=== PATIENT | male | born 1930 ===

== ENCOUNTER 2017-11-28 22:16 | Inpatient (IN) | payer MEDICARE ==
[2017-11-28 22:16] VITALS: BMI 27.9
[2017-11-28 23:00] LABS: BASO # 0.1 K/uL (0.0-0.2); EOS # 0.4 K/uL (0.0-0.7); EOS % 4.4 % (0.0-4.0); HEMOGLOBIN 10.9 g/dL (12.0-18.0); LYMPH # 2.4 K/uL (1.0-4.3); LYMPH % 25.6 % (20.0-40.0); MEAN CELL VOLUME 88.2 fL (80.0-94.0); MEAN CORPUSCULAR HEMOGLOBIN 29.5 pg (27.0-31.0); MEAN CORPUSCULAR HGB CONC 33.5 g/dL (33.0-37.0); MEAN PLATELET VOLUME 7.1 fL (7.2-11.7); MONO # 0.9 K/uL (0.0-0.8); MONO % 9.3 % (0.0-10.0); NEUT # 5.7 K/uL (1.8-7.0); NEUT % 59.7 % (50.0-75.0); NRBC % 0.1 % (0.0-2.0); RBC 3.69 Mil/uL (4.40-5.90); RED CELL DISTRIBUTION WIDTH 15.7 % (11.5-14.5); WHITE BLOOD COUNT 9.5 K/uL (4.8-10.8)
[2017-11-28 23:12] LABS: ALB/GLOB RATIO 1.2 (1.0-2.1); ALBUMIN 3.5 g/dL (3.5-5.0); ALT/SGPT 32 U/L (21-72); AST/SGOT 19 U/L (17-59); BLOOD UREA NITROGEN 17 mg/dL (9-20); CALCIUM 8.6 mg/dl (8.6-10.4); GFR NON-AFRICAN AMERICAN > 60
[2017-11-29] MEDS ORDERED: Moxifloxacin IV 400mg/250ml NS 400 MG/250 ML BAG IVPB ONE ×3 (00:11→00:29)
[2017-11-29] MEDS: Albuterol-Ipratrop 3 mg / 0.5 (3 ml) UD INH SCH ×4 (01:50→20:22)
[2017-11-29] MEDS ORDERED: Pneumococcal 23-Valent Vaccine IM ONE (02:39)
--- NOTE | 2017-11-29 03:11 | C.PDOC ---
History Of Present Illness 87 year old male presents to the ER with a complaint of a nonproductive cough for the past 8-10 days. Patient visited his PMD a few times with no relief. Denies SOB, chest pain, or recent travel. Chief Complaint (Nursing): Cough, Cold, Congestion History Per: Patient History/Exam Limitations: no limitations Onset/Duration Of Symptoms: Days Current Symptoms Are (Timing): Still Present Location Of Pain: None Sick Contacts (Context): None Associated Symptoms: Cough. denies: Fever, Sputum, Other (SOB, Chest pain) Ear Symptoms: Bilateral: None Recent travel outside of the [place]: No Past Medical History Reviewed: Historical Data, Nursing Documentation, Vital Signs Vital Signs: Last Vital Signs Temp 98.2 F 11/29/17 01:45 Pulse 67 11/29/17 01:45 Resp 20 11/29/17 01:45 BP 137/64 11/29/17 01:45 Pulse Ox 98 11/29/17 02:56 - Medical History PMH: Hypercholesterolemia Surgical History: Cholecystectomy - [facility] Procedures PARENTERAL INFUSION OF CONCENTRATED NUT. SUBSTANCE (07/11/12) Family History: States: Unknown Family Hx - Social History Hx Alcohol Use: No Hx Substance Use: No - Immunization History Hx Tetanus Toxoid Vaccination: No Hx Influenza Vaccination: Yes Hx Pneumococcal Vaccination: No Review Of Systems Constitutional: Negative for: Fever, Chills ENT: Negative for: Throat Pain Cardiovascular: Negative for: Chest Pain Respiratory: Positive for: Cough. Negative for: Shortness of Breath Gastrointestinal: Negative for: Nausea, Vomiting Genitourinary: Negative for: Dysuria, Hematuria Skin: Negative for: Rash Neurological: Negative for: Weakness, Numbness Physical Exam - Physical Exam Appears: Non-toxic Skin: Normal Color, Warm, Dry Head: Atraumatic, Normacephalic Eye(s): bilateral: Normal Inspection Ear(s): Bilateral: Normal Nose: Normal Oral Mucosa: Moist Throat: Normal, No Erythema, No Exudate Neck: Normal, Supple Chest: Symmetrical, No Tenderness Cardiovascular: Rhythm Regular Respiratory: Normal Breath Sounds, No Rales, No Rhonchi, No Wheezing Gastrointestinal/Abdominal: Soft, No Tenderness Back: No CVA Tenderness Neurological/Psych: Oriented x3, Normal Speech ED Course And Treatment - Laboratory Results Result Diagrams: 11/28/17 22:56 11/28/17 22:56 O2 Sat by Pulse Oximetry: 98 (Room air) Pulse Ox Interpretation: Normal Progress Note: Dr. Cosme Nieves notified, patient to be admitted for community acquired pneumonia. Disposition - Disposition Disposition: HOSPITALIZED Disposition Time: 23:30 Condition: STABLE - Clinical Impression Clinical Impression: Pneumonia - Scribe Statement The provider has reviewed the documentation as recorded by the Scribe Jean Pierre Funez All medical record entries made by the Willyibe were at my direction and personally dictated by me. I have reviewed the chart and agree that the record accurately reflects my personal performance of the history, physical exam, medical decision making, and the department course for this patient. I have also personally directed, reviewed, and agree with the discharge instructions and disposition.
[2017-11-29] MEDS: (Novolog) Insulin Aspart, Recombinant 100 u/ml 10 ml vial SC SCH ×4 (07:33→21:40)
--- NOTE | 2017-11-29 09:31 | RAD ---
Date of service: 11/28/2017 PROCEDURE: CHEST RADIOGRAPH, 1 VIEW HISTORY: SOB COMPARISON: None available. FINDINGS: LUNGS: Clear. PLEURA: No pneumothorax or pleural fluid seen. CARDIOVASCULAR: Normal. OSSEOUS STRUCTURES: No significant abnormalities. VISUALIZED UPPER ABDOMEN: Normal. OTHER FINDINGS: None. IMPRESSION: No active disease.
[2017-11-29] MEDS: Enoxaparin 40 mg Syringe SC SCH (10:00)
[2017-11-29] MEDS ORDERED: Pantoprazole 40 mg EC Tab PO SCH (10:00)
[2017-11-29] MEDS ORDERED: guaiFENesin DM 200 mg-20 mg/10 ml UD PO SCH (10:00)
[2017-11-29] MEDS: Moxifloxacin IV 400mg/250ml NS 400 MG/250 ML BAG IVPB SCH (17:41)
--- NOTE | 2017-11-29 21:02 | CP.PCM.HP ---
Past Patient History - Past Social History Smoking Status: Never Smoked - CARDIAC Hx Hypercholesterolemia: Yes - ENDOCRINE/METABOLIC Hx Diabetes Mellitus Type 2: Yes - MUSCULOSKELETAL/RHEUMATOLOGICAL Hx Arthritis: Yes (BACK) - PSYCHIATRIC Hx Substance Use: No - SURGICAL HISTORY Hx Cholecystectomy: Yes - ANESTHESIA Hx Anesthesia: Yes Hx Anesthesia Reactions: No Meds Allergies/Adverse Reactions: Allergies Allergy/AdvReac Type Severity Reaction Status Date / Time Penicillins Allergy Verified 11/28/17 22:30 Physical Exam - Constitutional Appears: Well - Head Exam Head Exam: ATRAUMATIC, NORMAL INSPECTION, NORMOCEPHALIC - Eye Exam Eye Exam: EOMI, Normal appearance, PERRL Pupil Exam: NORMAL ACCOMODATION, PERRL - ENT Exam ENT Exam: Mucous Membranes Moist, Normal Exam - Neck Exam Neck exam: Positive for: Normal Inspection - Respiratory Exam Respiratory Exam: Decreased Breath Sounds - Cardiovascular Exam Cardiovascular Exam: REGULAR RHYTHM, +S1, +S2 - GI/Abdominal Exam GI & Abdominal Exam: Diminished Bowel Sounds, Soft - Rectal Exam Rectal Exam: Deferred Results - Vital Signs Recent Vital Signs: Last Vital Signs Temp 98.2 F 11/29/17 15:30 Pulse 67 11/29/17 15:30 Resp 20 11/29/17 15:30 BP 123/65 11/29/17 15:30 Pulse Ox 95 11/29/17 15:30 - Labs Result Diagrams: 11/28/17 22:56 11/28/17 22:56 Labs: Laboratory Results - last 24 hr 11/28/17 11/28/17 11/28/17 22:56 22:56 22:59 WBC 9.5 RBC 3.69 L Hgb 10.9 L Hct 32.6 L MCV 88.2 D MCH 29.5 MCHC 33.5 RDW 15.7 H Plt Count 276 MPV 7.1 L Neut % (Auto) 59.7 Lymph % (Auto) 25.6 [place] % (Auto) 9.3 Eos % (Auto) 4.4 H Baso % (Auto) 1.0 Neut # (Auto) 5.7 Lymph # (Auto) 2.4 [place] # (Auto) 0.9 H Eos # (Auto) 0.4 Baso # (Auto) 0.1 Sodium 135 Potassium 4.2 Chloride 101 Carbon Dioxide 25 Anion Gap 14 BUN 17 Creatinine 0.7 L Est GFR ( Amer) > 60 Est GFR (Non-Af Amer) > 60 POC Glucose (mg/dL) Random Glucose 228 H Calcium 8.6 Total Bilirubin 0.4 AST 19 ALT 32 Alkaline Phosphatase 66 Total Protein 6.3 Albumin 3.5 Globulin 2.8 Albumin/Globulin Ratio 1.2 Influenza Typ A,B (EIA) Negative for flu a/b 11/29/17 11/29/17 11/29/17 07:15 11:08 16:35 WBC RBC Hgb Hct MCV MCH MCHC RDW Plt Count MPV Neut % (Auto) Lymph % (Auto) [place] % (Auto) Eos % (Auto) Baso % (Auto) Neut # (Auto) Lymph # (Auto) [place] # (Auto) Eos # (Auto) Baso # (Auto) Sodium Potassium Chloride Carbon Dioxide Anion Gap BUN Creatinine Est GFR ( Amer) Est GFR (Non-Af Amer) POC Glucose (mg/dL) 96 203 H 161 H Random Glucose Calcium Total Bilirubin AST ALT Alkaline Phosphatase Total Protein Albumin Globulin Albumin/Globulin Ratio Influenza Typ A,B (EIA)
[2017-11-29] MEDS: Promethazine/Cod 6.25mg-10mg/5ml Syr UD PO PRN (21:34)
[2017-11-30] MEDS: Albuterol-Ipratrop 3 mg / 0.5 (3 ml) UD INH SCH ×6 (02:07→21:05)
[2017-11-30] MEDS: Promethazine/Cod 6.25mg-10mg/5ml Syr UD PO PRN (04:35)
[2017-11-30] MEDS: (Novolog) Insulin Aspart, Recombinant 100 u/ml 10 ml vial SC SCH ×4 (08:18→21:57)
--- NOTE | 2017-11-30 10:36 | CP.PCM.CON ---
History of Present Illness - History of Present Illness History of Present Illness: Asked to see this 87yo male admitted for pneumonia with SOB, cough for several days duration. Patient reports lower abdominal pain Left>right but jomar N/V/C/D. No bleeding or melena. Reports he is unaware if he has had a colono scopy or ever seen a GI physician from Dr Nieves. Has h/o umbilical hernia repair but unclear of when and says the bulging recurred soon after the operation. Asked to see about his pain. Review of Systems - Respiratory Respiratory: Cough, Dyspnea on Exertion, Chest Congestion - Gastrointestinal Gastrointestinal: As Per HPI - Genitourinary Genitourinary: absent: Dysuria, Hematuria, Nocturia - Musculoskeletal Musculoskeletal: Arthralgias Past Patient History - Past Social History Smoking Status: Never Smoked Alcohol: None Drugs: Denies - CARDIAC Hx Hypercholesterolemia: Yes - ENDOCRINE/METABOLIC Hx Diabetes Mellitus Type 2: Yes - HEMATOLOGICAL/ONCOLOGICAL Hx Cirrhosis: No Hx Hepatitis A: No Hx Hepatitis B: No Hx Hepatitis C: No Hx Human Immunodeficiency Virus (HIV): No - MUSCULOSKELETAL/RHEUMATOLOGICAL Hx Arthritis: Yes (BACK) - GASTROINTESTINAL Hx Gastrointestinal Disorders: No Hx Bowel Surgery: No Hx Clostridium Difficile: No Hx Colitis: No Hx Colostomy: No Hx Constipation: No Hx Crohn's Disease: No Hx Diarrhea: No Hx Diverticulitis: No Hx Esophageal Varices: No Hx Fatty Liver Disease: No Hx Gall Bladder Disease: No Hx Gastritis: No Hx Gastroesophageal Reflux: No Hx Hemorrhoids: No Hx Ileostomy: No Hx Irritable Bowel: No Hx Liver Failure: No Hx Nausea: No Hx Pancreatitis: No HX Swallowing Problems: No Hx Ulcer: No Hx Vomiting: No Other/Comment: Umbilical hernia - PSYCHIATRIC Hx Substance Use: No - SURGICAL HISTORY Hx Cholecystectomy: Yes Hx Herniorrhaphy: Yes - ANESTHESIA Hx Anesthesia: Yes Hx Anesthesia Reactions: No Meds Allergies/Adverse Reactions: Allergies Allergy/AdvReac Type Severity Reaction Status Date / Time Penicillins Allergy Verified 11/28/17 22:30 - Medications Medications: Current Medications Albuterol/Ipratropium (Duoneb 3 Mg/0.5 Mg (3 Ml) Ud) 3 ml INH RQ4 [facility] Aspirin (Ecotrin) 81 mg PO DAILY [facility] Last Admin: 11/29/17 10:00 Dose: 81 mg Benzocaine/Menthol (Cepacol Sore Throat) 1 sosa MT QID [facility] Enoxaparin Sodium (Lovenox) 40 mg SC DAILY [facility] Last Admin: 11/29/17 10:00 Dose: 40 mg Furosemide (Lasix) 20 mg PO DAILY [facility] Last Admin: 11/29/17 09:59 Dose: 20 mg Moxifloxacin HCl (Avelox Iv 400mg/250ml Ns) 400 mg in 250 mls @ 167 mls/hr IVPB Q24H [facility]; Protocol Last Admin: 11/29/17 17:41 Dose: 167 mls/hr Insulin Aspart (Novolog) 0 unit SC ACHS [facility]; Protocol Last Admin: 11/30/17 08:18 Dose: 3 units Losartan Potassium (Cozaar) 100 mg PO DAILY [facility] Last Admin: 11/29/17 10:00 Dose: 100 mg Metoprolol Tartrate (Lopressor) 25 mg PO Q12H [facility] Pantoprazole Sodium (Protonix Inj) 40 mg IVP DAILY [facility] Pneumococcal Polyvalent Vaccine (Pneumovax 23 Vaccine) 0.5 ml IM .ONCE ONE Stop: 12/01/17 10:01 Promethazine HCl/Codeine (Phenergan/Codeine Oral Syrup) 5 ml PO Q4 PRN PRN Reason: Cough Last Admin: 11/30/17 04:35 Dose: 5 ml Rosuvastatin Calcium (Crestor) 20 mg PO HS [facility] Physical Exam - Constitutional Appears: No Acute Distress, Chronically Ill - Head Exam Head Exam: NORMAL INSPECTION - Eye Exam Eye Exam: EOMI, PERRL - Respiratory Exam Respiratory Exam: Rhonchi - Cardiovascular Exam Cardiovascular Exam: REGULAR RHYTHM, +S1 - GI/Abdominal Exam GI & Abdominal Exam: Hernia, Normal Bowel Sounds, Soft. absent: Guarding, Mass, Tenderness Additional comments: large sree-umbilical hernia, reducible and no tenderness. No other masses or guarding. - Rectal Exam Rectal Exam: Deferred - Extremities Exam Extremities exam: Positive for: normal inspection - Neurological Exam Neurological exam: Alert, Oriented x3 - Psychiatric Exam Psychiatric exam: Normal Affect, Normal Mood - Skin Skin Exam: Dry, Warm Results - Vital Signs Recent Vital Signs: Last Vital Signs Temp 98.1 F 11/30/17 07:00 Pulse 100 H 11/30/17 07:00 Resp 20 11/30/17 07:00 BP 136/73 10/04/18 07:00 Pulse Ox 97 11/30/17 07:00 - Labs Result Diagrams: 11/28/17 22:56 11/28/17 22:56 Labs: Laboratory Results - last 24 hr 11/29/17 11/29/17 11:08 16:35 POC Glucose (mg/dL) 203 H 161 H Assessment & Plan (1) Lower abdominal pain Assessment and Plan: Pain may be related to umbilical hernia and intermittent incarceration of bowel loops that appears easily reducible. r/o obstruction, occult malignancy, inflammatory process. CT Scan of abdomen and pelvis Stool for OB x 3 Age precludes a colonoscopy for screening in the absence of any other findings on radiologic work up. Status: Acute (2) Umbilical hernia Assessment and Plan: as above, recurrent hernia noted. Status: Acute (3) Pneumonia Assessment and Plan: On antibiotics as per PCP. Status: Acute
[2017-11-30] MEDS: Enoxaparin 40 mg Syringe SC SCH (10:55)
[2017-11-30] MEDS ORDERED: Iohexol 240 (50 ml) PO ONE (11:45)
[2017-11-30] MEDS: Benzocaine/Menthol (Cepacol) Lozenge MT SCH ×3 (14:13→21:56)
[2017-11-30] MEDS ORDERED: Iohexol 350mg/ml 100 ML ONE (14:29)
[2017-11-30] MEDS: Moxifloxacin IV 400mg/250ml NS 400 MG/250 ML BAG IVPB SCH (17:20)
--- NOTE | 2017-11-30 19:34 | CP.PCM.PN ---
Subjective - Date & Time of Evaluation Date of Evaluation: 11/30/17 Time of Evaluation: 07:45 - Subjective Subjective: clinically same Objective - Vital Signs/Intake and Output Vital Signs (last 24 hours): Temp Pulse Resp BP Pulse Ox 97.8 F 69 20 131/73 96 11/30/17 16:00 11/30/17 16:00 11/30/17 16:00 11/30/17 16:00 11/30/17 16:00 Intake and Output: 11/30/17 12/01/17 18:59 06:59 Intake Total 500 Balance 500 - Medications Medications: Current Medications Albuterol/Ipratropium (Duoneb 3 Mg/0.5 Mg (3 Ml) Ud) 3 ml INH RQ4 [facility] Last Admin: 11/30/17 13:03 Dose: Not Given Aspirin (Ecotrin) 81 mg PO DAILY [facility] Last Admin: 11/30/17 10:55 Dose: 81 mg Benzocaine/Menthol (Cepacol Sore Throat) 1 sosa MT QID [facility] Last Admin: 11/30/17 17:27 Dose: 1 sosa Enoxaparin Sodium (Lovenox) 40 mg SC DAILY [facility] Last Admin: 11/30/17 10:55 Dose: 40 mg Furosemide (Lasix) 20 mg PO DAILY [facility] Last Admin: 11/30/17 10:55 Dose: 20 mg Moxifloxacin HCl (Avelox Iv 400mg/250ml Ns) 400 mg in 250 mls @ 167 mls/hr IVPB Q24H [facility]; Protocol Last Admin: 11/30/17 17:20 Dose: 167 mls/hr Insulin Aspart (Novolog) 0 unit SC ACHS [facility]; Protocol Last Admin: 11/30/17 17:23 Dose: 2 units Losartan Potassium (Cozaar) 100 mg PO DAILY [facility] Last Admin: 11/30/17 10:55 Dose: 100 mg Metoprolol Tartrate (Lopressor) 25 mg PO Q12H [facility] Last Admin: 11/30/17 10:57 Dose: 25 mg Pantoprazole Sodium (Protonix Inj) 40 mg IVP DAILY [facility] Last Admin: 11/30/17 10:54 Dose: 40 mg Pneumococcal Polyvalent Vaccine (Pneumovax 23 Vaccine) 0.5 ml IM .ONCE ONE Stop: 12/01/17 10:01 Promethazine HCl/Codeine (Phenergan/Codeine Oral Syrup) 5 ml PO Q4 PRN PRN Reason: Cough Last Admin: 11/30/17 04:35 Dose: 5 ml Rosuvastatin Calcium (Crestor) 20 mg PO HS [facility] - Labs Labs: 11/28/17 22:56 11/28/17 22:56 - Constitutional Appears: Well - Head Exam Head Exam: ATRAUMATIC, NORMAL INSPECTION, NORMOCEPHALIC - Eye Exam Eye Exam: EOMI, Normal appearance, PERRL Pupil Exam: NORMAL ACCOMODATION, PERRL - ENT Exam ENT Exam: Mucous Membranes Moist, Normal Exam - Neck Exam Neck Exam: Full ROM, Normal Inspection. absent: Lymphadenopathy - Respiratory Exam Respiratory Exam: Decreased Breath Sounds - Cardiovascular Exam Cardiovascular Exam: REGULAR RHYTHM, +S1, +S2 - GI/Abdominal Exam GI & Abdominal Exam: Soft, Diminished Bowel Sounds - Rectal Exam Rectal Exam: Deferred
[2017-12-01] MEDS: Albuterol-Ipratrop 3 mg / 0.5 (3 ml) UD INH SCH ×6 (00:43→20:13)
[2017-12-01] MEDS: (Novolog) Insulin Aspart, Recombinant 100 u/ml 10 ml vial SC SCH ×4 (08:35→21:39)
[2017-12-01] MEDS ORDERED: Pneumococcal 23-Valent Vaccine IM ONE (10:00)
[2017-12-01] MEDS: Enoxaparin 40 mg Syringe SC SCH (10:36)
[2017-12-01] MEDS: Benzocaine/Menthol (Cepacol) Lozenge MT SCH ×4 (10:37→21:10)
[2017-12-01] MEDS: Promethazine/Cod 6.25mg-10mg/5ml Syr UD PO PRN ×2 (10:45→22:23)
--- NOTE | 2017-12-01 11:46 | CT ---
Date of service: 11/30/2017 PROCEDURE: CT Abdomen and Pelvis with contrast HISTORY: Lower abdominal pain, umbilical hernia COMPARISON: 07/11/2012. TECHNIQUE: CT scan of the abdomen and pelvis was performed after administration of intravenous contrast. Oral contrast was not administered. Coronal and sagittal reformatted images were obtained. Contrast dose: 100 mL Omnipaque 350 Radiation dose: Total exam DLP = 775.16 mGy-cm. This CT exam was performed using one or more of the following dose reduction techniques: Automated exposure control, adjustment of the mA and/or kV according to patient size, and/or use of iterative reconstruction technique. FINDINGS: LOWER THORAX: There is a stable 5 mm nodule in the right middle lobe. There is dependent atelectasis in the lung bases. LIVER: The liver is normal in size. Fatty liver. No gross lesion or ductal dilatation. GALLBLADDER AND BILE DUCTS: Surgically absent. PANCREAS: Mild diffuse atrophy. No gross lesion or ductal dilatation. SPLEEN: Normal in size and appearance. ADRENALS: No discrete nodule. KIDNEYS AND URETERS: Normal in size with homogeneous enhancement. No hydronephrosis. No solid mass. VASCULATURE: Atherosclerotic aortoiliac calcifications. No aortic aneurysm. BOWEL: The small bowel loops are normal in caliber. There is fecalization of small bowel contents. There is a large paraumbilical hernia containing nonobstructed small bowel loops. The colon is unremarkable. No bowel obstruction. APPENDIX: Normal appendix. PERITONEUM: No free fluid. No free air. LYMPH NODES: No enlarged lymph nodes. BLADDER: There is mild circumferential mural thickening of the urinary bladder wall and right posterolateral diverticulum. REPRODUCTIVE: There is moderate enlargement of the prostate gland with median lobe hypertrophy indenting on the base of the urinary bladder. BONES: No acute fracture. OTHER FINDINGS: None. IMPRESSION: Large paraumbilical hernia containing nonobstructed small bowel lobes. Fecalization of small bowel contents suggestive of chronic stasis. No bowel obstruction or incarceration. Moderate enlargement of the prostate gland. Please correlate with PSA levels. A preliminary report was provided by [facility].
--- NOTE | 2017-12-01 11:55 | CP.PCM.PN ---
Subjective - Date & Time of Evaluation Date of Evaluation: 12/01/17 Time of Evaluation: 11:50 - Subjective Subjective: Still with intermittent sree-umbilical pain. No N/V/C/D Objective - Vital Signs/Intake and Output Vital Signs (last 24 hours): Temp Pulse Resp BP Pulse Ox 98.3 F 78 20 149/75 98 12/01/17 07:23 12/01/17 07:23 12/01/17 07:23 12/01/17 10:39 12/01/17 07:23 Intake and Output: 12/01/17 12/01/17 06:59 18:59 Intake Total 200 Balance 200 - Medications Medications: Current Medications Albuterol/Ipratropium (Duoneb 3 Mg/0.5 Mg (3 Ml) Ud) 3 ml INH RQ4 [facility] Last Admin: 12/01/17 08:25 Dose: 3 ml Aspirin (Ecotrin) 81 mg PO DAILY [facility] Last Admin: 12/01/17 10:36 Dose: 81 mg Benzocaine/Menthol (Cepacol Sore Throat) 1 sosa MT QID [facility] Last Admin: 12/01/17 10:37 Dose: 1 sosa Enoxaparin Sodium (Lovenox) 40 mg SC DAILY [facility] Last Admin: 12/01/17 10:36 Dose: 40 mg Furosemide (Lasix) 20 mg PO DAILY [facility] Last Admin: 12/01/17 10:36 Dose: 20 mg Moxifloxacin HCl (Avelox Iv 400mg/250ml Ns) 400 mg in 250 mls @ 167 mls/hr IVPB Q24H [facility]; Protocol Last Admin: 11/30/17 17:20 Dose: 167 mls/hr Insulin Aspart (Novolog) 0 unit SC ACHS [facility]; Protocol Last Admin: 12/01/17 08:35 Dose: 4 units Losartan Potassium (Cozaar) 100 mg PO DAILY [facility] Last Admin: 12/01/17 10:36 Dose: 100 mg Metoprolol Tartrate (Lopressor) 25 mg PO Q12H [facility] Last Admin: 12/01/17 10:39 Dose: 25 mg Pantoprazole Sodium (Protonix Inj) 40 mg IVP DAILY [facility] Last Admin: 12/01/17 10:37 Dose: 40 mg Promethazine HCl/Codeine (Phenergan/Codeine Oral Syrup) 5 ml PO Q4 PRN PRN Reason: Cough Last Admin: 12/01/17 10:45 Dose: 5 ml Rosuvastatin Calcium (Crestor) 20 mg PO HS [facility] Last Admin: 11/30/17 21:55 Dose: 20 mg - Labs Labs: 11/28/17 22:56 11/28/17 22:56 - Constitutional Appears: No Acute Distress - Head Exam Head Exam: ATRAUMATIC, NORMOCEPHALIC - Respiratory Exam Respiratory Exam: Rhonchi, NORMAL BREATHING PATTERN - Cardiovascular Exam Cardiovascular Exam: REGULAR RHYTHM - GI/Abdominal Exam GI & Abdominal Exam: Soft, Hernia, Normal Bowel Sounds. absent: Distended, Tenderness, Mass, Rebound - Extremities Exam Extremities Exam: Normal Inspection Assessment and Plan (1) Lower abdominal pain Assessment & Plan: Pain appears to be related to large paraumbilical hernia containing small bowel loops, no obstruction. Not a candidate for surgery in absence of obstruction. No other bowel or intraabdominal abnormal findings. Observe Status: Acute (2) Umbilical hernia Assessment & Plan: Large hernia with bowel loops noted on CT but no strangulation of obstruction. Continues to tolerate diet and having stools. Observe for now. No current plans for surgical intervention Status: Chronic (3) Pneumonia Status: Acute
--- NOTE | 2017-12-01 13:57 | CP.PCM.PN ---
Subjective - Date & Time of Evaluation Date of Evaluation: 12/01/17 Time of Evaluation: 08:15 - Subjective Subjective: clinically same Objective - Vital Signs/Intake and Output Vital Signs (last 24 hours): Temp Pulse Resp BP Pulse Ox 98.3 F 78 20 149/75 98 12/01/17 07:23 12/01/17 07:23 12/01/17 07:23 12/01/17 10:39 12/01/17 07:23 Intake and Output: 12/01/17 12/01/17 06:59 18:59 Intake Total 200 Balance 200 - Medications Medications: Current Medications Albuterol/Ipratropium (Duoneb 3 Mg/0.5 Mg (3 Ml) Ud) 3 ml INH RQ4 [facility] Last Admin: 12/01/17 13:55 Dose: Not Given Aspirin (Ecotrin) 81 mg PO DAILY [facility] Last Admin: 12/01/17 10:36 Dose: 81 mg Benzocaine/Menthol (Cepacol Sore Throat) 1 sosa MT QID [facility] Last Admin: 12/01/17 13:46 Dose: 1 sosa Enoxaparin Sodium (Lovenox) 40 mg SC DAILY [facility] Last Admin: 12/01/17 10:36 Dose: 40 mg Furosemide (Lasix) 20 mg PO DAILY [facility] Last Admin: 12/01/17 10:36 Dose: 20 mg Moxifloxacin HCl (Avelox Iv 400mg/250ml Ns) 400 mg in 250 mls @ 167 mls/hr IVPB Q24H [facility]; Protocol Last Admin: 11/30/17 17:20 Dose: 167 mls/hr Insulin Aspart (Novolog) 0 unit SC ACHS [facility]; Protocol Last Admin: 12/01/17 12:06 Dose: 4 units Losartan Potassium (Cozaar) 100 mg PO DAILY [facility] Last Admin: 12/01/17 10:36 Dose: 100 mg Metoprolol Tartrate (Lopressor) 25 mg PO Q12H [facility] Last Admin: 12/01/17 10:39 Dose: 25 mg Pantoprazole Sodium (Protonix Inj) 40 mg IVP DAILY [facility] Last Admin: 12/01/17 10:37 Dose: 40 mg Promethazine HCl/Codeine (Phenergan/Codeine Oral Syrup) 5 ml PO Q4 PRN PRN Reason: Cough Last Admin: 12/01/17 10:45 Dose: 5 ml Rosuvastatin Calcium (Crestor) 20 mg PO HS [facility] Last Admin: 11/30/17 21:55 Dose: 20 mg - Labs Labs: 11/28/17 22:56 11/28/17 22:56 - Constitutional Appears: Well - Head Exam Head Exam: ATRAUMATIC, NORMAL INSPECTION, NORMOCEPHALIC - Eye Exam Eye Exam: EOMI, Normal appearance, PERRL Pupil Exam: NORMAL ACCOMODATION, PERRL - ENT Exam ENT Exam: Mucous Membranes Moist, Normal Exam - Neck Exam Neck Exam: Full ROM, Normal Inspection. absent: Lymphadenopathy - Respiratory Exam Respiratory Exam: Decreased Breath Sounds - Cardiovascular Exam Cardiovascular Exam: REGULAR RHYTHM, +S1, +S2 - GI/Abdominal Exam GI & Abdominal Exam: Soft, Diminished Bowel Sounds - Rectal Exam Rectal Exam: Deferred
[2017-12-01] MEDS: Moxifloxacin IV 400mg/250ml NS 400 MG/250 ML BAG IVPB SCH (17:05)
[2017-12-02] MEDS: Albuterol-Ipratrop 3 mg / 0.5 (3 ml) UD INH SCH ×8 (00:47→23:45)
[2017-12-02 06:56] LABS: BASO # 0.1 K/uL (0.0-0.2); BASO % 0.7 % (0.0-2.0); EOS # 0.3 K/uL (0.0-0.7); EOS % 3.6 % (0.0-4.0); HEMOGLOBIN 11.5 g/dL (12.0-18.0); LYMPH # 1.9 K/uL (1.0-4.3); LYMPH % 22.4 % (20.0-40.0); MEAN CORPUSCULAR HEMOGLOBIN 28.8 pg (27.0-31.0); MEAN CORPUSCULAR HGB CONC 33.5 g/dL (33.0-37.0); MEAN PLATELET VOLUME 7.4 fL (7.2-11.7); MONO # 0.8 K/uL (0.0-0.8); MONO % 9.4 % (0.0-10.0); NEUT # 5.6 K/uL (1.8-7.0); NEUT % 63.9 % (50.0-75.0); RED CELL DISTRIBUTION WIDTH 15.9 % (11.5-14.5); WHITE BLOOD COUNT 8.7 K/uL (4.8-10.8)
[2017-12-02 07:09] LABS: MEAN CELL VOLUME 85.9 fL (80.0-94.0)
[2017-12-02 07:38] LABS: BLOOD UREA NITROGEN 13 mg/dL (9-20); CALCIUM 8.6 mg/dl (8.6-10.4); GFR NON-AFRICAN AMERICAN > 60
[2017-12-02] MEDS: (Novolog) Insulin Aspart, Recombinant 100 u/ml 10 ml vial SC SCH ×4 (08:22→21:25)
--- NOTE | 2017-12-02 10:04 | CP.PCM.PN ---
Subjective - Date & Time of Evaluation Date of Evaluation: 12/02/17 Time of Evaluation: 10:01 - Subjective Subjective: Covering Dr Brooks Cough, exacerbating abdominal pain from large umbilical hernia Objective - Vital Signs/Intake and Output Vital Signs (last 24 hours): Temp Pulse Resp BP Pulse Ox 97.7 F 88 20 120/66 98 12/02/17 08:00 12/02/17 08:00 12/02/17 08:00 12/02/17 08:00 12/02/17 08:00 Intake and Output: 12/02/17 12/02/17 06:59 18:59 Intake Total 300 Balance 300 - Medications Medications: Current Medications Albuterol/Ipratropium (Duoneb 3 Mg/0.5 Mg (3 Ml) Ud) 3 ml INH RQ4 [facility] Last Admin: 12/02/17 08:02 Dose: 3 ml Aspirin (Ecotrin) 81 mg PO DAILY [facility] Last Admin: 12/01/17 10:36 Dose: 81 mg Benzocaine/Menthol (Cepacol Sore Throat) 1 sosa MT QID [facility] Last Admin: 12/01/17 21:10 Dose: 1 sosa Enoxaparin Sodium (Lovenox) 40 mg SC DAILY [facility] Last Admin: 12/01/17 10:36 Dose: 40 mg Furosemide (Lasix) 20 mg PO DAILY [facility] Last Admin: 12/01/17 10:36 Dose: 20 mg Moxifloxacin HCl (Avelox Iv 400mg/250ml Ns) 400 mg in 250 mls @ 167 mls/hr IVPB Q24H [facility]; Protocol Last Admin: 12/01/17 17:05 Dose: 167 mls/hr Insulin Aspart (Novolog) 0 unit SC ACHS [facility]; Protocol Last Admin: 12/02/17 08:22 Dose: 4 units Losartan Potassium (Cozaar) 100 mg PO DAILY [facility] Last Admin: 12/01/17 10:36 Dose: 100 mg Metoprolol Tartrate (Lopressor) 25 mg PO Q12H [facility] Last Admin: 12/01/17 21:09 Dose: 25 mg Pantoprazole Sodium (Protonix Inj) 40 mg IVP DAILY [facility] Last Admin: 12/01/17 10:37 Dose: 40 mg Promethazine HCl/Codeine (Phenergan/Codeine Oral Syrup) 5 ml PO Q4 PRN PRN Reason: Cough Last Admin: 12/01/17 22:23 Dose: 5 ml Rosuvastatin Calcium (Crestor) 20 mg PO HS [facility] Last Admin: 12/01/17 21:09 Dose: 20 mg - Labs Labs: 12/02/17 06:41 12/02/17 06:41 - Constitutional Appears: Well, No Acute Distress - Respiratory Exam Respiratory Exam: Clear to Ausculation Bilateral - Cardiovascular Exam Cardiovascular Exam: REGULAR RHYTHM - GI/Abdominal Exam GI & Abdominal Exam: Soft. absent: Tenderness (Large umbilical hernia without tenderness) Assessment and Plan (1) Umbilical hernia Assessment & Plan: abdominal pain from hernia exacerbated by coughing. Should improve with resoluation of cough/pneumonia. Followed by surgery, no plans for urgent hernia repair Status: Chronic
[2017-12-02] MEDS: Enoxaparin 40 mg Syringe SC SCH (10:15)
[2017-12-02] MEDS: Promethazine/Cod 6.25mg-10mg/5ml Syr UD PO PRN (10:16)
[2017-12-02] MEDS: Benzocaine/Menthol (Cepacol) Lozenge MT SCH ×4 (10:21→21:01)
--- NOTE | 2017-12-02 11:16 | CP.PCM.PN ---
Subjective - Date & Time of Evaluation Date of Evaluation: 12/02/17 Time of Evaluation: 08:00 - Subjective Subjective: clinically same Objective - Vital Signs/Intake and Output Vital Signs (last 24 hours): Temp Pulse Resp BP Pulse Ox 97.7 F 88 20 120/66 98 12/02/17 08:00 12/02/17 08:00 12/02/17 08:00 12/02/17 10:15 12/02/17 08:00 Intake and Output: 12/02/17 12/02/17 06:59 18:59 Intake Total 300 Balance 300 - Medications Medications: Current Medications Albuterol/Ipratropium (Duoneb 3 Mg/0.5 Mg (3 Ml) Ud) 3 ml INH RQ4 [facility] Last Admin: 12/02/17 08:02 Dose: 3 ml Aspirin (Ecotrin) 81 mg PO DAILY [facility] Last Admin: 12/02/17 10:20 Dose: 81 mg Benzocaine/Menthol (Cepacol Sore Throat) 1 sosa MT QID [facility] Last Admin: 12/02/17 10:21 Dose: 1 sosa Enoxaparin Sodium (Lovenox) 40 mg SC DAILY [facility] Last Admin: 12/02/17 10:15 Dose: 40 mg Furosemide (Lasix) 20 mg PO DAILY [facility] Last Admin: 12/02/17 10:15 Dose: 20 mg Moxifloxacin HCl (Avelox Iv 400mg/250ml Ns) 400 mg in 250 mls @ 167 mls/hr IVPB Q24H [facility]; Protocol Last Admin: 12/01/17 17:05 Dose: 167 mls/hr Insulin Aspart (Novolog) 0 unit SC ACHS [facility]; Protocol Last Admin: 12/02/17 08:22 Dose: 4 units Losartan Potassium (Cozaar) 100 mg PO DAILY [facility] Last Admin: 12/02/17 10:15 Dose: 100 mg Metoprolol Tartrate (Lopressor) 25 mg PO Q12H [facility] Last Admin: 12/02/17 10:15 Dose: 25 mg Pantoprazole Sodium (Protonix Inj) 40 mg IVP DAILY [facility] Last Admin: 12/02/17 10:16 Dose: 40 mg Promethazine HCl/Codeine (Phenergan/Codeine Oral Syrup) 5 ml PO Q4 PRN PRN Reason: Cough Last Admin: 12/02/17 10:16 Dose: 5 ml Rosuvastatin Calcium (Crestor) 20 mg PO HS [facility] Last Admin: 12/01/17 21:09 Dose: 20 mg - Labs Labs: 12/02/17 06:41 12/02/17 06:41 - Constitutional Appears: Well - Head Exam Head Exam: ATRAUMATIC, NORMAL INSPECTION, NORMOCEPHALIC - Eye Exam Eye Exam: EOMI, Normal appearance, PERRL Pupil Exam: NORMAL ACCOMODATION, PERRL - ENT Exam ENT Exam: Mucous Membranes Moist, Normal Exam - Neck Exam Neck Exam: Full ROM, Normal Inspection. absent: Lymphadenopathy - Respiratory Exam Respiratory Exam: Decreased Breath Sounds - Cardiovascular Exam Cardiovascular Exam: REGULAR RHYTHM, +S1, +S2 - GI/Abdominal Exam GI & Abdominal Exam: Soft, Diminished Bowel Sounds - Rectal Exam Rectal Exam: Deferred
[2017-12-02] MEDS ORDERED: (Novolog) Insulin Aspart, Recombinant 100 u/ml 10 ml vial SC ONE ×2 (12:08→22:00)
[2017-12-02] MEDS: Moxifloxacin IV 400mg/250ml NS 400 MG/250 ML BAG IVPB SCH (17:50)
[2017-12-02] MEDS ORDERED: (Lantus) Insulin Glargine, Recombinant SC SCH (22:45)
[2017-12-03] MEDS: Albuterol-Ipratrop 3 mg / 0.5 (3 ml) UD INH SCH ×4 (08:36→20:59)
[2017-12-03] MEDS: (Novolog) Insulin Aspart, Recombinant 100 u/ml 10 ml vial SC SCH ×4 (08:45→21:11)
[2017-12-03] MEDS: Enoxaparin 40 mg Syringe SC SCH (09:15)
[2017-12-03] MEDS: Benzocaine/Menthol (Cepacol) Lozenge MT SCH ×4 (09:15→21:19)
[2017-12-03] MEDS: Promethazine/Cod 6.25mg-10mg/5ml Syr UD PO PRN (09:34)
--- NOTE | 2017-12-03 14:25 | CP.PCM.PN ---
Subjective - Date & Time of Evaluation Date of Evaluation: 12/03/17 Time of Evaluation: 07:30 - Subjective Subjective: clinically same Objective - Vital Signs/Intake and Output Vital Signs (last 24 hours): Temp Pulse Resp BP Pulse Ox 98.2 F 87 20 168/81 H 95 12/03/17 08:00 12/03/17 08:00 12/03/17 08:00 12/03/17 12:30 12/03/17 08:00 Intake and Output: 12/03/17 12/03/17 06:59 18:59 Intake Total 600 Balance 600 - Medications Medications: Current Medications Albuterol/Ipratropium (Duoneb 3 Mg/0.5 Mg (3 Ml) Ud) 3 ml INH RQ4 [facility] Last Admin: 12/03/17 13:18 Dose: 3 ml Aspirin (Ecotrin) 81 mg PO DAILY [facility] Last Admin: 12/03/17 09:15 Dose: 81 mg Benzocaine/Menthol (Cepacol Sore Throat) 1 ossa MT QID [facility] Last Admin: 12/03/17 14:14 Dose: 1 sosa Enoxaparin Sodium (Lovenox) 40 mg SC DAILY [facility] Last Admin: 12/03/17 09:15 Dose: 40 mg Furosemide (Lasix) 20 mg PO DAILY [facility] Last Admin: 12/03/17 09:14 Dose: 20 mg Moxifloxacin HCl (Avelox Iv 400mg/250ml Ns) 400 mg in 250 mls @ 167 mls/hr IVPB Q24H [facility]; Protocol Last Admin: 12/02/17 17:50 Dose: 167 mls/hr Insulin Aspart (Novolog) 0 unit SC ACHS [facility]; Protocol Last Admin: 12/03/17 12:30 Dose: 8 units Insulin Glargine (Lantus) 60 unit SC HS [facility] Losartan Potassium (Cozaar) 100 mg PO DAILY [facility] Last Admin: 12/03/17 09:14 Dose: 100 mg Metoprolol Tartrate (Lopressor) 25 mg PO Q12H [facility] Last Admin: 12/03/17 12:30 Dose: 25 mg Pantoprazole Sodium (Protonix Inj) 40 mg IVP DAILY [facility] Last Admin: 12/03/17 09:15 Dose: 40 mg Promethazine HCl/Codeine (Phenergan/Codeine Oral Syrup) 5 ml PO Q4 PRN PRN Reason: Cough Last Admin: 12/03/17 09:34 Dose: 5 ml Rosuvastatin Calcium (Crestor) 20 mg PO HS [facility] Last Admin: 12/02/17 21:00 Dose: 20 mg - Labs Labs: 12/02/17 06:41 12/02/17 06:41 - Constitutional Appears: Well - Head Exam Head Exam: ATRAUMATIC, NORMAL INSPECTION, NORMOCEPHALIC - Eye Exam Eye Exam: EOMI, Normal appearance, PERRL Pupil Exam: NORMAL ACCOMODATION, PERRL - ENT Exam ENT Exam: Mucous Membranes Moist, Normal Exam - Neck Exam Neck Exam: Full ROM, Normal Inspection. absent: Lymphadenopathy - Respiratory Exam Respiratory Exam: Decreased Breath Sounds - Cardiovascular Exam Cardiovascular Exam: REGULAR RHYTHM, +S1, +S2 - GI/Abdominal Exam GI & Abdominal Exam: Soft, Diminished Bowel Sounds - Rectal Exam Rectal Exam: Deferred
[2017-12-03] MEDS: Moxifloxacin IV 400mg/250ml NS 400 MG/250 ML BAG IVPB SCH (17:48)
[2017-12-03] MEDS ORDERED: (Lantus) Insulin Glargine, Recombinant SC SCH (22:00)
[2017-12-04] MEDS: Albuterol-Ipratrop 3 mg / 0.5 (3 ml) UD INH SCH ×3 (08:10→16:28)
[2017-12-04] MEDS: (Novolog) Insulin Aspart, Recombinant 100 u/ml 10 ml vial SC SCH ×3 (08:38→17:41)
[2017-12-04] MEDS ORDERED: (Lantus) Insulin Glargine, Recombinant SC ONE (09:00)
[2017-12-04] MEDS ORDERED: Pantoprazole 40 mg EC Tab PO SCH (10:00)
[2017-12-04] MEDS: Enoxaparin 40 mg Syringe SC SCH (10:43)
[2017-12-04] MEDS: Benzocaine/Menthol (Cepacol) Lozenge MT SCH ×2 (10:46→13:32)
--- NOTE | 2017-12-04 16:28 | CP.PCM.PN ---
Subjective - Date & Time of Evaluation Date of Evaluation: 12/04/17 Time of Evaluation: 16:28 - Subjective Subjective: Alert and orientedx3, no sob or chest pains, has some dry cough, NAD. Objective - Vital Signs/Intake and Output Vital Signs (last 24 hours): Temp Pulse Resp BP Pulse Ox 98.4 F 76 18 167/75 H 98 12/04/17 08:23 12/04/17 08:23 12/04/17 08:23 12/04/17 10:46 12/04/17 08:23 Intake and Output: 12/04/17 12/04/17 06:59 18:59 Intake Total 640 Balance 640 - Medications Medications: Current Medications Albuterol/Ipratropium (Duoneb 3 Mg/0.5 Mg (3 Ml) Ud) 3 ml INH RQ4 [facility] Last Admin: 12/04/17 13:50 Dose: 3 ml Aspirin (Ecotrin) 81 mg PO DAILY [facility] Last Admin: 12/04/17 10:42 Dose: Not Given Benzocaine/Menthol (Cepacol Sore Throat) 1 sosa MT QID [facility] Last Admin: 12/04/17 13:32 Dose: 1 sosa Enoxaparin Sodium (Lovenox) 40 mg SC DAILY [facility] Last Admin: 12/04/17 10:43 Dose: Not Given Furosemide (Lasix) 20 mg PO DAILY [facility] Last Admin: 12/04/17 10:43 Dose: 20 mg Insulin Aspart (Novolog) 0 unit SC [facility]; Protocol Last Admin: 12/04/17 12:30 Dose: 10 units Insulin Glargine (Lantus) 60 unit SC [facility] Last Admin: 12/03/17 21:17 Dose: 60 units Losartan Potassium (Cozaar) 100 mg PO DAILY [facility] Last Admin: 12/04/17 10:41 Dose: 100 mg Metoprolol Tartrate (Lopressor) 25 mg PO Q12H [facility] Last Admin: 12/04/17 10:46 Dose: 25 mg Moxifloxacin HCl (Avelox) 400 mg PO Q24H [facility] Pantoprazole Sodium (Protonix Ec Tab) 40 mg PO DAILY [facility] Last Admin: 12/04/17 10:41 Dose: 40 mg Promethazine HCl/Codeine (Phenergan/Codeine Oral Syrup) 5 ml PO Q4 PRN PRN Reason: Cough Last Admin: 12/03/17 09:34 Dose: 5 ml Rosuvastatin Calcium (Crestor) 20 mg PO HS [facility] Last Admin: 12/03/17 21:17 Dose: 20 mg - Labs Labs: 12/02/17 06:41 12/02/17 06:41 Assessment and Plan - Assessment and Plan (Free Text) Assessment: 87 yr old male admitted with pneumonia, persistant cogh, abdominal hernia, seen and examined. Feeling better, alert and orientedx3, ambulatory, still with some dry cough. Discussed with DR Kavin Nieves, plan to discharge home today. Added combivent, levaquin, singulair and protonix. Advised to follow up in the office in 1 week.
[2017-12-04 16:45] VITALS: BP 136/76; PULSE 72; RESP 20; TEMP 98.6; O2SAT 99
--- NOTE | 2017-12-04 17:06 | CP.PCM.PN ---
Subjective - Date & Time of Evaluation Date of Evaluation: 12/04/17 Time of Evaluation: 17:04 - Subjective Subjective: No new c/o. Abdominal complaints especially when coughing. No N/V/C/D Objective - Vital Signs/Intake and Output Vital Signs (last 24 hours): Temp Pulse Resp BP Pulse Ox 98.6 F 72 20 136/76 99 12/04/17 16:44 12/04/17 16:44 12/04/17 16:44 12/04/17 16:44 12/04/17 16:44 Intake and Output: 12/04/17 12/04/17 06:59 18:59 Intake Total 640 500 Balance 640 500 - Medications Medications: Current Medications Albuterol/Ipratropium (Duoneb 3 Mg/0.5 Mg (3 Ml) Ud) 3 ml INH RQ4 [facility] Last Admin: 12/04/17 16:28 Dose: 3 ml Aspirin (Ecotrin) 81 mg PO DAILY [facility] Last Admin: 12/04/17 10:42 Dose: Not Given Benzocaine/Menthol (Cepacol Sore Throat) 1 sosa MT QID [facility] Last Admin: 12/04/17 13:32 Dose: 1 sosa Enoxaparin Sodium (Lovenox) 40 mg SC DAILY [facility] Last Admin: 12/04/17 10:43 Dose: Not Given Furosemide (Lasix) 20 mg PO DAILY [facility] Last Admin: 12/04/17 10:43 Dose: 20 mg Insulin Aspart (Novolog) 0 unit SC [facility]; Protocol Last Admin: 12/04/17 12:30 Dose: 10 units Insulin Glargine (Lantus) 60 unit SC HS [facility] Last Admin: 12/03/17 21:17 Dose: 60 units Losartan Potassium (Cozaar) 100 mg PO DAILY [facility] Last Admin: 12/04/17 10:41 Dose: 100 mg Metoprolol Tartrate (Lopressor) 25 mg PO Q12H [facility] Last Admin: 12/04/17 10:46 Dose: 25 mg Moxifloxacin HCl (Avelox) 400 mg PO Q24H [facility] Pantoprazole Sodium (Protonix Ec Tab) 40 mg PO DAILY [facility] Last Admin: 12/04/17 10:41 Dose: 40 mg Promethazine HCl/Codeine (Phenergan/Codeine Oral Syrup) 5 ml PO Q4 PRN PRN Reason: Cough Last Admin: 12/03/17 09:34 Dose: 5 ml Rosuvastatin Calcium (Crestor) 20 mg PO HS [facility] Last Admin: 12/03/17 21:17 Dose: 20 mg - Labs Labs: 12/02/17 06:41 12/02/17 06:41 - Constitutional Appears: No Acute Distress - Head Exam Head Exam: ATRAUMATIC, NORMOCEPHALIC - Respiratory Exam Respiratory Exam: Rhonchi, NORMAL BREATHING PATTERN - Cardiovascular Exam Cardiovascular Exam: REGULAR RHYTHM - GI/Abdominal Exam GI & Abdominal Exam: Soft, Hernia, Normal Bowel Sounds. absent: Distended, Tenderness, Mass, Rebound - Extremities Exam Extremities Exam: Normal Inspection Assessment and Plan (1) Lower abdominal pain Assessment & Plan: Pain remains intermittent and related to large abdominal wall hernia. No plans for surgical repair at this time in absence of obstruction. Continue supportive care. Abdominal binder prn. May be seen in my office as out patient if needed. Surgical consult prn Status: Acute (2) Umbilical hernia Assessment & Plan: as above Status: Chronic (3) Pneumonia Assessment & Plan: Plan for discharge noted. Status: Acute
== END 2017-12-04 18:13 | disposition home or self-care (01) | DRG 195 ==
LOC: C.ER 22:16 → C.3T 11-29 00:13 → OBSVTOIN 12-01 13:32
PROVIDERS: ADMIT Internal Medicine Nephrology; ATTEND Internal Medicine Nephrology
PROC: 3E0234Z Introduction of Serum, Toxoid and Vaccine into Muscle, Percutaneous Approach (ICD-10-PCS; principal; 2017-12-01)
DX: J18.9 Pneumonia, unspecified organism (principal); K42.9 Umbilical hernia without obstruction or gangrene; E11.9 Type 2 diabetes mellitus without complications; E78.00 Pure hypercholesterolemia, unspecified; Z23 Encounter for immunization

== ENCOUNTER 2018-03-16 15:11 | Outpatient (CLI) | payer MEDICARE | END 2018-03-16 15:12 | disposition home or self-care (01) | LOC: C.CTH 15:11 ==

== ENCOUNTER 2018-03-19 08:09 | Outpatient (CLI) | payer MEDICARE | END 2018-03-19 08:10 | disposition home or self-care (01) | LOC: C.LAB 08:09 | DX: G12.9 Spinal muscular atrophy, unspecified (principal) ==